=== PATIENT | male | born 1950 | race Caucasian/White ===

== ENCOUNTER 2021-11-24 13:22 | Outpatient (REF) | payer OTHER, SELFPAY ==
[2021-11-26 19:10] LABS: Alpha Fetoprotein Tumor Marker 7453 ng/mL (0-9)
== END 2021-11-24 13:23 | disposition home or self-care (01) ==
LOC: NPINS 13:22
PROVIDERS: PCP Family Medicine; Visit Provider Internal Medicine Hematology & Oncology
DX: C22.0 Liver cell carcinoma (principal)
CPT/HCPCS: 82105

== ENCOUNTER 2021-12-29 13:54 | Outpatient (REF) | payer OTHER, SELFPAY ==
[2021-12-31 13:34] LABS: Alpha Fetoprotein Tumor Marker 2161 ng/mL (0-9)
== END 2021-12-29 13:55 | disposition home or self-care (01) ==
LOC: NPINS 13:54
PROVIDERS: PCP Family Medicine; Visit Provider Internal Medicine Hematology & Oncology
DX: C22.0 Liver cell carcinoma (principal)
CPT/HCPCS: 82105

== ENCOUNTER 2022-04-26 11:00 | Outpatient (CLI) | payer OTHER, SELFPAY ==
[2022-04-26 14:05] LABS: HDL Cholesterol* 32 mg/dL (>=40)
[2022-04-26 15:25] LABS: Cholesterol* 129 mg/dL (90-199); LDL Cholesterol Calculated 75 mg/dL (<100)
[2022-04-26 15:27] LABS: Triglycerides* 110 mg/dL (40-149)
[2022-04-27 16:00] LABS: Alpha Fetoprotein Tumor Marker 4056 ng/mL (0-9)
[2022-04-27 21:33] LABS: C-Peptide, Serum or Plasma 0.2 ng/mL (0.5-3.3)
== END 2022-04-26 11:01 | disposition home or self-care (01) ==
PROVIDERS: PCP Family Medicine; Visit Provider Family Medicine
DX: E11.9 Type 2 diabetes mellitus without complications (principal); C22.0 Liver cell carcinoma; E78.5 Hyperlipidemia, unspecified; Z12.5 Encounter for screening for malignant neoplasm of prostate; I10 Essential (primary) hypertension
CPT/HCPCS: 80061; 82105; 84153; 84681

== ENCOUNTER 2023-08-15 10:05 | Outpatient (RCR) | payer MEDICARE, BC, SELFPAY ==
[2023-08-15 10:53] LABS: Creatinine* 0.8 mg/dL (0.5-1.5); Est. Creatinine Clearance* 65.55; Estimated Glomerular Filt Rate 95 ml/min
== END 2024-02-11 23:59 | disposition home or self-care (01) ==
LOC: CCIC 10:05
PROVIDERS: PCP Family Medicine; Referring Provider Family Medicine; Visit Provider Internal Medicine Hematology & Oncology
DX: C22.0 Liver cell carcinoma (principal)
CPT/HCPCS: 36415; 82565; 99211

== ENCOUNTER 2023-10-23 09:32 | Outpatient (CLI) | payer MEDICARE, BC, SELFPAY | END 2023-10-23 09:33 | disposition home or self-care (01) | PROVIDERS: PCP Family Medicine; Visit Provider Family Medicine | DX: E78.2 Mixed hyperlipidemia (principal); I10 Essential (primary) hypertension; Z12.5 Encounter for screening for malignant neoplasm of prostate | CPT/HCPCS: 80048; 80061; 84460; G0103 ==